=== PATIENT | male | born 1980 | race Hispanic/Latino ===

== ENCOUNTER 2016-07-18 14:13 | Day surgery (SDC) | payer SELFPAY ==
[~2016-07-18] VITALS: Ht 160 cm; Wt 90.7 kg
[~2016-07-18 14:13] MED LIST: CIPR500T89 PO; FLAG500T PO; NO KNOWN MEDS; PERCOCET PO
[2016-07-18] MEDS ORDERED: KETOROLAC 30 MG/ML VIAL (J1885) As Ordered ONE (15:32)
[2016-07-18] MEDS ORDERED: ONDANSETRON 4MG/2ML VIAL (J2405) As Ordered ONE ×2 (15:32→20:11)
[2016-07-18 15:56] LABS: BASO % 0.1 % (0.0-1.0); EOS # 0.2 K/mm3 (0.0-0.50); EOS % 1.2 % (0.0-3.0); LARGE UNSTAINED CELL # 0.1 K/mm3 (0.0-0.4); LARGE UNSTAINED CELL % 1.1 % (0.0-4.0); LYMPH # 1.8 K/mm3 (1.5-4.5); LYMPH % 14.6 % (24.0-44.0); MEAN CORPUSCULAR HEMOGLOBIN 30.1 pg (27.0-33.0); MEAN CORPUSCULAR HGB CONC 33.4 g/dl (32.0-36.5); MEAN CORPUSCULAR VOLUME 90.3 fl (80.0-96.0); MONO # 0.5 K/mm3 (0.0-0.8); MONO % 4.3 % (0.0-5.0); NEUTROPHILS # 9.9 K/mm3 (1.8-7.7); NEUTROPHILS % 78.6 % (36.0-66.0); PLATELET COUNT, AUTOMATED 291 k/mm3 (150-450); RED CELL DISTRIBUTION WIDTH 12.5 % (11.5-14.5); WHITE BLOOD COUNT 12.6 K/mm3 (4.0-10.0)
[2016-07-18 16:11] LABS: ALBUMIN 4.8 GM/DL (3.2-5.2); ALBUMIN/GLOBULIN RATIO 1.07 (1.00-1.93); ALKALINE PHOSPHATASE 89 U/L (45-117); ALT/SGPT 107 U/L (12-78); ANION GAP 8 MEQ/L (8-16); AST/SGOT 61 U/L (15-37); BILIRUBIN,DIRECT 0.1 MG/DL (0.0-0.2); BILIRUBIN,TOTAL 0.6 MG/DL (0.2-1.0); BLOOD UREA NITROGEN 10 MG/DL (7-18); CALCIUM LEVEL 9.1 MG/DL (8.5-10.1); CARBON DIOXIDE LEVEL 27 MEQ/L (21-32); CHLORIDE LEVEL 103 MEQ/L (98-107); CREATININE FOR GFR 0.99 MG/DL (0.70-1.30); GLOMERULAR FILTRATION RATE > 60.0 (>60); GLUCOSE, FASTING 98 MG/DL (70-105); SODIUM LEVEL 138 MEQ/L (136-145); TOTAL PROTEIN 9.3 GM/DL (6.4-8.2)
[2016-07-18] MEDS ORDERED: ISOVUE-370 76% 100ML VIAL (Q9967) As Ordered ONE (16:39)
[2016-07-18] MEDS ORDERED: MORPHINE 4 MG/ML 1ML SYRINGE As Ordered ONE (17:27)
--- NOTE | 2016-07-18 17:32 | REP ---
CT study of the abdomen and pelvis with IV but without oral contrast: History: Appendicitis. Right-sided abdominal pain. Comparison study June 14, 2012. CT contrast dose: 100 ml of Isovue 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 The lung bases are clear. No pleural effusion is seen. There is moderate diffuse fatty infiltration of the liver. There is some fat sparing in the right lobe and near the gallbladder. No adrenal lesion is seen. Pancreas is normal in appearance. No gallbladder abnormality is seen. The kidneys enhance symmetrically and are morphologically intact. There is a small right renal lipoma measuring 7 mm in greatest diameter. This is unchanged from the comparison CT study in 2012. It is fat density. No retroperitoneal mass or adenopathy is seen. There is evidence of acute appendicitis with a dilated appendix showing mural thickening and moderate pericolonic fat streaking. There is a small amount of pericolic gutter fluid. No free air or abscess is seen. There is radiopaque material in the proximal appendiceal lumen consistent with an appendicolith. In addition, there is diverticulosis affecting the sigmoid colon and there is a segment of mural thickening in the sigmoid colon with pericolonic fat streaking suggestive of diverticulitis. I note that the 2012 prior study showed diverticulitis in this same location. There is no evidence of abscess or free air here. The study is otherwise unremarkable. No bony destructive lesion is seen. Impression: 1. CT findings of acute appendicitis without evidence of free air or abscess. There is evidence of an appendicolith. 2. There is also evidence of sigmoid colon diverticulitis with pericolonic fat streaking and mural thickening but no evidence of abscess or free air. 3. There is moderate fatty infiltration of the liver. No other significant abnormality. Signed by Gibran Correia MD 07/19/2016 07:52 A
[2016-07-18] MEDS ORDERED: PIPERACILLIN/TAZOBACTAM SOD 3.375 GM in D5W MINI-BAG PLUS 50 ML IV SCH (18:32)
[2016-07-18] MEDS ORDERED: VITMTA PO (18:42)
--- NOTE | 2016-07-18 18:54 | EDDOCDS ---
Nurse's Notes [facility] Name: Eh Parsons Age: 35 yrs Sex: Male : 1980 Arrival Date: 07/18/2016 Time: 14:13 Bed I3 / M3 Private MD: NO PRIMARY PHYSICIAN, . Diagnosis: Acute appendicitis Presentation: 07/18 14:33 Presenting complaint: Patient states: history of diverticulitis, rt sided abdominal kpj pain since Friday, nauseated and fatigued. Risk factors: the patient reports not having a history of previous torsion. Adult Sepsis Screening: The patient does not have new or worsening altered mentation. Patient's respiratory rate is less than 22. Systolic blood pressure is greater than 100. Patient has a qSOFA score of 0- Negative Sepsis Screen. Suicide/Homicide risk assessment- the patient denies having any suicidal and/or homicidal ideations and does not present with any other emotional, behavioral or mental health complaints. Status: Patient is not a repair servicer or dependent. Transition of care: patient was not received from another setting of care. 14:33 Acuity: CHRISTIANO Level 3 [facility] 14:33 Method Of Arrival: Walkin/Carried/Asstd [facility] Triage Assessment: 14:35 General: Appears uncomfortable, Behavior is appropriate for age, pleasant. Pain: kpj Location: right lower quadrant Pain currently is 9 out of 10 on a pain scale. Pt Declines HIV testing. Neurological: Level of Consciousness is awake, alert, Oriented to person, place, time. Respiratory: Airway is patent Respiratory effort is even, unlabored, Respiratory pattern is regular, symmetrical. GI: Reports lower abdominal pain, nausea, Pain is 9 out of 10 on a pain scale. Derm: Skin is pink, warm & dry. Historical: - Allergies: No known drug Allergies; - Home Meds: 1. none - PMHx: Diverticulitis; - PSHx: none; - Social history: Smoking status: Patient states former smoker of tobacco. No barriers to communication noted, The patient speaks fluent Tajik. - Family history: Not pertinent. - : The pt / caregiver states he / she is not on anticoagulants. Home medication list is obtained from the patient. - Exposure Risk Screening:: None identified. Screenin:46 Screening information is obtained from the patient. Fall risk: No risks identified. dsf Assistance ADL's: requires no assistance with activities of daily living. Abuse/DV Screen: The patient / caregiver reports he/she is: not in a situation that causes fear, pain or injury. Nutritional screening: No deficits noted. Advance Directives: Currently, there is no health care proxy. home support is adequate. Assessment: 15:50 Adult Sepsis Screening: The patient does not have new or worsening altered mentation. dsf Patient's respiratory rate is less than 22. Systolic blood pressure is greater than 100. Patient has a qSOFA score of 0- Negative Sepsis Screen. General: Appears in no apparent distress, Behavior is appropriate for age, cooperative. Pain: Location: right lower quadrant Pain currently is 8 out of 10 on a pain scale. Quality of pain is described as pressure. Neurological: Level of Consciousness is awake, alert, Oriented to person, place, time. Cardiovascular: Capillary refill < 3 seconds Heart tones S1 S2 present. Respiratory: Airway is patent Respiratory effort is even, unlabored, Respiratory pattern is regular, symmetrical, Breath sounds are clear bilaterally. GI: Abdomen is non- distended Bowel sounds hyperactive in right upper quadrant, left upper quadrant, right lower quadrant and left lower quadrant Abd is soft X 4 quads Abd is tender to palpation in right lower quadrant. Derm: Skin is pink, warm & dry. 17:00 General: First contact with pt. Pt returned from CT. Tolerated well. When asked about ld5 pain and nausea, pt states "It's ok". Pt denies any needs at this time. Will continue to monitor. 17:05 General: Appears in no apparent distress, comfortable, Behavior is appropriate for age, dsf cooperative. Pain: Location: right lower quadrant Pain currently is 7 out of 10 on a pain scale. Neurological: Level of Consciousness is awake, alert. Cardiovascular: No deficits noted. Respiratory: No deficits noted. Derm: Skin is pink, warm & dry. 18:46 Adult Sepsis Screening: The patient does not have new or worsening altered mentation. dsf Patient's respiratory rate is less than 22. Systolic blood pressure is greater than 100. Patient has a qSOFA score of 0- Negative Sepsis Screen. General: Appears in no apparent distress, comfortable, Behavior is appropriate for age, cooperative. Pain: Denies pain. Neurological: Level of Consciousness is awake, alert, Oriented to person, place, time. Cardiovascular: Capillary refill < 3 seconds. Respiratory: Airway is patent Respiratory effort is even, unlabored, Respiratory pattern is regular, symmetrical. GI: Abdomen is non- distended. Derm: Skin is pink, warm & dry. Vital Signs: 14:14 BP 148 / 67; Pulse 121; Resp 20; Temp 98.9(O); Pulse Ox 98% on R/A; Weight 90.72 kg elp (R); Height 5 ft. 3 in. (160.02 cm) (R); Pain 9/10; 16:00 Pain 7/10; dsf 17:05 BP 141 / 78; Pulse 107; Resp 20; Temp 98.5(O); Pulse Ox 98% on R/A; Pain 7/10; dsf 18:40 BP 128 / 75; Pulse 89; Resp 20; Temp 98.4(O); Pulse Ox 98% on R/A; Pain 0/10; dsf 14:14 Body Mass Index 35.43 (90.72 kg, 160.02 cm) [facility] Vitals: 14:14 Log In Time: July 18, 2016 at 14:12. [facility] ED Course: 14:13 Patient visited by Ruchi Mandel PCA. elp 14:13 Patient moved to Waiting el 14:14 NO PRIMARY PHYSICIAN, . is Private Physician. elp 14:15 Patient visited by Ruchi Mandel PCA. elp 14:15 Patient moved to Pre RCE elp 14:34 Triage Initiated [facility] 14:36 Patient moved to Triage 1 [facility] 15:09 Dud[facility] Davis [facility] cc10 15:09 Remedios Alvarez MD is Attending Physician. cc10 15:11 Patient visited by Dudley Davis PA-C. cc10 15:11 Patient visited by Dudley Davis PA-C. cc10 15:31 Patient moved to I3 / dwg 15:40 Inserted saline lock: 18 gauge in left antecubital area The patient tolerated the dsf procedure well. 15:42 Urinalysis Sent. dem1 15:51 Patient visited by Gloria Brown RN. dsf 16:[address] dsf 16:59 Patient moved to I3 / M3 ld5 17:00 Patient visited by Rita Tony RN. ld5 17:02 Patient visited by Rita Tony RN. ld5 17:07 [facility] Payment Agreement was scanned into [employer] and attached to record. ks16 18:03 Félix Garner is Hospitalizing Provider. cc10 18:14 CT ABD & PELVIS: IV Contrast Only Returned. EDMS 18:46 The patient / caregiver is instructed regarding the plan of care and ED course. dsf 18:46 No procedures done that require assistance. dsf 18:51 Admission Orders was scanned into [employer] and attached to record. ml3 Administered Medications: 15:40 Drug: NS 0.9% 1000 ml [sodium chloride 0.9 % injection solution] Route: IV; Rate: dsf bolus; Site: left antecubital; 17:06 Follow up: IV Status: Completed infusion; IV Intake: 1000ml dsf 15:40 Drug: Ondansetron 4 mg [ondansetron HCl 2 mg/mL intravenous solution (2 mL)] Route: dsf IVP; Site: left antecubital; 15:40 Drug: ketorolac 30 mg [ketorolac 30 mg/mL (1 mL) injection solution (1 mL)] Route: IVP; dsf Site: left antecubital; 16:00 Follow up: Pain 12/30 Adult dsf 17:33 Drug: morphine 4 mg [morphine 4 mg/mL intravenous cartridge (1 mL)] Route: IVP; Site: dsf left antecubital; Intake: 17:06 IV: 1000.00ml; Total: 1000.00ml. dsf Order Results: Lab Order: Basic Metabolic Profile; SPEC'M 07/18/16 15:44 Test: GLUCOSE, FASTING; Value: 98; Range: 70-105; Units: MG/DL; Status: F Test: BLOOD UREA NITROGEN; Value: 10; Range: 7-18; Units: MG/DL; Status: F Test: CREATININE FOR GFR; Value: 0.99; Range: 0.70-1.30; Units: MG/DL; Status: F Test: GLOMERULAR FILTRATION RATE; Value: > 60.0; Range: >60; Status: F Test: SODIUM LEVEL; Value: 138; Range: 136-145; Units: MEQ/L; Status: F Test: POTASSIUM SERUM; Value: 4.0; Range: 3.5-5.1; Units: MEQ/L; Status: F Test: CHLORIDE LEVEL; Value: 103; Range: 98-107; Units: MEQ/L; Status: F Test: CARBON DIOXIDE LEVEL; Value: 27; Range: 21-32; Units: MEQ/L; Status: F Test: ANION GAP; Value: 8; Range: 8-16; Units: MEQ/L; Status: F Test: CALCIUM LEVEL; Value: 9.1; Range: 8.5-10.1; Units: MG/DL; Status: F Test Note: ; Units are mL/min/1.73 m2 Chronic Kidney Disease Staging per NKF: Stage I & II GFR >=60 Normal to Mildly Decreased Stage III GFR 30-59 Moderately Decreased Stage IV GFR 15-29 Severely Decreased Stage V GFR <15 Very Little GFR Left ESRD GFR <15 on GROUND MIXER Lab Order: CBC with Diff; SPEC'M 07/18/16 15:44 Test: WHITE BLOOD COUNT; Value: 12.6; Range: 4.0-10.0; Abnormal: Above high normal; Units: K/mm3; Status: F Test: RED BLOOD COUNT; Value: 5.28; Range: 4.30-6.10; Units: M/mm3; Status: F Test: HEMOGLOBIN; Value: 15.9; Range: 14.0-18.0; Units: g/dl; Status: F Test: HEMATOCRIT; Value: 47.7; Range: 42.0-52.0; Units: %; Status: F Test: MEAN CORPUSCULAR VOLUME; Value: 90.3; Range: 80.0-96.0; Units: fl; Status: F Test: MEAN CORPUSCULAR HEMOGLOBIN; Value: 30.1; Range: 27.0-33.0; Units: pg; Status: F Test: MEAN CORPUSCULAR HGB CONC; Value: 33.4; Range: 32.0-36.5; Units: g/dl; Status: F Test: RED CELL DISTRIBUTION WIDTH; Value: 12.5; Range: 11.5-14.5; Units: %; Status: F Test: PLATELET COUNT, AUTOMATED; Value: 291; Range: 150-450; Units: k/mm3; Status: F Test: NEUTROPHILS %; Value: 78.6; Range: 36.0-66.0; Abnormal: Above high normal; Units: %; Status: F Test: LYMPH %; Value: 14.6; Range: 24.0-44.0; Abnormal: Below low normal; Units: %; Status: F Test: MONO %; Value: 4.3; Range: 0.0-5.0; Units: %; Status: F Test: EOS %; Value: 1.2; Range: 0.0-3.0; Units: %; Status: F Test: BASO %; Value: 0.1; Range: 0.0-1.0; Units: %; Status: F Test: LARGE UNSTAINED CELL %; Value: 1.1; Range: 0.0-4.0; Units: %; Status: F Test: NEUTROPHILS #; Value: 9.9; Range: 1.8-7.7; Abnormal: Above high normal; Units: K/mm3; Status: F Test: LYMPH #; Value: 1.8; Range: 1.5-4.5; Units: K/mm3; Status: F Test: MONO #; Value: 0.5; Range: 0.0-0.8; Units: K/mm3; Status: F Test: EOS #; Value: 0.2; Range: 0.0-0.50; Units: K/mm3; Status: F Test: BASO #; Value: 0.0; Range: 0.0-0.2; Units: K/mm3; Status: F Test: LARGE UNSTAINED CELL #; Value: 0.1; Range: 0.0-0.4; Units: K/mm3; Status: F Lab Order: Lipase; SPEC'M 07/18/16 15:44 Test: LIPASE; Value: 117; Range: 73-393; Units: U/L; Status: F Lab Order: Liver Profile; SPEC'M 07/18/16 15:44 Test: AST/SGOT; Value: 61; Range: 15-37; Abnormal: Above high normal; Units: U/L; Status: F Test: ALT/SGPT; Value: 107; Range: 12-78; Abnormal: Above high normal; Units: U/L; Status: F Test: ALKALINE PHOSPHATASE; Value: 89; Range: 45-117; Units: U/L; Status: F Test: BILIRUBIN,TOTAL; Value: 0.6; Range: 0.2-1.0; Units: MG/DL; Status: F Test: BILIRUBIN,DIRECT; Value: 0.1; Range: 0.0-0.2; Units: MG/DL; Status: F Test: TOTAL PROTEIN; Value: 9.3; Range: 6.4-8.2; Abnormal: Above high normal; Units: GM/DL; Status: F Test: ALBUMIN; Value: 4.8; Range: 3.2-5.2; Units: GM/DL; Status: F Test: ALBUMIN/GLOBULIN RATIO; Value: 1.07; Range: 1.00-1.93; Status: F Lab Order: Urinalysis; SPEC'M 07/18/16 15:40 Test: APPEARANCE, URINE; Value: CLEAR; Range: CLEAR; Status: F Test: COLOR, URINE; Value: YELLOW; Range: YELLOW; Status: F Test: PH,URINE; Value: 5.0; Range: 5.0-9.0; Units: UNITS; Status: F Test: SPECIFIC GRAVITY URINE AUTO; Value: 1.021; Range: 1.002-1.035; Status: F Test: PROTEIN, URINE AUTO; Value: NEGATIVE; Range: NEGATIVE; Units: mg/dL; Status: F Test: GLUCOSE, URINE (UA) AUTO; Value: NEGATIVE; Range: NEGATIVE; Units: mg/dL; Status: F Test: KETONE, URINE AUTO; Value: 1+; Range: NEGATIVE; Abnormal: Above high normal; Units: mg/dL; Status: F Test: UROBILINOGEN, URINE AUTO; Value: 0.2; Range: 0.0-2.0; Units: mg/dL; Status: F Test: BILIRUBIN, URINE AUTO; Value: NEGATIVE; Range: NEGATIVE; Status: F Test: NITRITE, URINE AUTO; Value: NEGATIVE; Range: NEGATIVE; Status: F Test: LEUKOCYTE ESTERASE, URINE AUTO; Value: NEGATIVE; Range: NEGATIVE; Status: F Test: BLOOD, URINE BLOOD; Value: NEGATIVE; Range: NEGATIVE; Status: F Test: WBC, URINE AUTO; Value: 0; Range: 0-3; Units: /HPF; Status: F Test: RBC, URINE AUTO; Value: 1; Range: 0-3; Units: /HPF; Status: F Test: BACTERIA, URINE AUTO; Value: NEGATIVE; Range: NEGATIVE; Status: F Test: SQUAMOUS EPITHELIAL CELL UR AU; Value: 0; Range: 0-6; Units: /HPF; Status: F Test: MUCUS, URINE; Value: SMALL; Range: NEGATIVE; Status: F Test: HYALINE CAST, URINE AUTO; Value: 0; Range: 0-1; Units: /LPF; Status: F Radiology Order: CT ABD & PELVIS: IV Contrast Only Test: CT ABD & PELVIS: IV Contrast Only REASON FOR EXAMINATION: Appendicitis; CT study of the abdomen and pelvis with IV but without oral contrast:; ; History: Appendicitis. 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 The lung; bases are clear. No pleural effusion is seen.; ; There is moderate diffuse fatty infiltration of the liver. There is some fat; sparing in the right lobe and near the gallbladder. No adrenal lesion is seen.; Pancreas is normal in appearance. No gallbladder abnormality is seen.; ; The kidneys enhance symmetrically and are morphologically intact. There is a; small right renal lipoma measuring 7 mm in greatest diameter. This is unchanged; from the comparison CT study in 2011. It is fat density. No retroperitoneal; mass or adenopathy is seen.; ; There is evidence of acute appendicitis with a dilated appendix showing mural; thickening and moderate pericolonic fat streaking. There is a small amount of; pericolic gutter fluid. No free air or abscess is seen. There is radiopaque; material in the proximal appendiceal lumen consistent with an appendicolith.; ; In addition, there is diverticulosis affecting the sigmoid colon and there is a; segment of mural thickening in the sigmoid colon with pericolonic fat streaking; suggestive of diverticulitis. I note that the 2012 prior study showed; diverticulitis in this same location. There is no evidence of abscess or free; air here. The study is otherwise unremarkable. No bony destructive lesion is; seen.; ; Impression:; 1. CT findings of acute appendicitis without evidence of free air or abscess.; There is evidence of an appendicolith.; 2. There is also evidence of sigmoid colon diverticulitis with pericolonic fat; streaking and mural thickening but no evidence of abscess or free air.; 3. There is moderate fatty infiltration of the liver. No other significant; abnormality.; ; ; ; ; Unreviewed; Outcome: 18:03 Decision to Hospitalize by Provider. cc10 18:46 Discharge Assessment: Patient awake, alert and oriented x 3. No cognitive and/or dsf functional deficits noted. Patient verbalized understanding of disposition instructions. patient administered narcotics - yes. Patient was admitted to the hospital or transferred to another facility. The following High Risk Discharge criteria are identified: None. Admitted to OR accompanied by nurse, accompanied by tech, via stretcher, with chart. Condition: stable. CT Study completed. Property :Personal belongings accompany Pt. 18:54 Patient left the ED. ajjose Signatures: Dispatcher [employer] Quentin Siegel, RN RN Nellie Bajwa, RN RN Dm Nice, Land Reclamation Specialist Unit ml3 Rita TonyRN RN ld5 Gloria Brown,RN RN Aria Xie Demeishia dem1 Ruchi Mandel, ASSOCIATE PRODUCER ASSOCIATE PRODUCER elp Dudley Davis, PA-C PA-C cc10 Demetria Phillips, Reg Reg ks16 MTDD
--- NOTE | 2016-07-18 18:54 | EDDOCDS ---
Physician Documentation [facility] Name: Eh Parsons Age: 35 yrs Sex: Male : 1980 Arrival Date: 07/18/2016 Time: 14:13 Bed I3 / M3 Private MD: NO PRIMARY PHYSICIAN, . Disposition: 07/18/16 18:03 Hospitalization ordered by Félix Garner for Observation. Preliminary diagnosis is Acute appendicitis. - Bed requested for Admit. - Status is Observation. ajs - Condition is Stable. - Problem is an ongoing problem. - Symptoms have improved. Historical: - Allergies: No known drug Allergies; - Home Meds: 1. none - PMHx: Diverticulitis; - PSHx: none; - Social history: Smoking status: Patient states former smoker of tobacco. No barriers to communication noted, The patient speaks fluent Yakut. - Family history: Not pertinent. - : The pt / caregiver states he / she is not on anticoagulants. Home medication list is obtained from the patient. - Exposure Risk Screening:: None identified. Vital Signs: 07/18 14:14 BP 148 / 67; Pulse 121; Resp 20; Temp 98.9(O); Pulse Ox 98% on R/A; Weight 90.72 kg / elp 200 lbs (R); Height 5 ft. 3 in. (160.02 cm) (R); Pain 9/10; 16:00 Pain 7/10; dsf 17:05 BP 141 / 78; Pulse 107; Resp 20; Temp 98.5(O); Pulse Ox 98% on R/A; Pain 7/10; dsf 18:40 BP 128 / 75; Pulse 89; Resp 20; Temp 98.4(O); Pulse Ox 98% on R/A; Pain 0/10; dsf 14:14 Body Mass Index 35.43 (90.72 kg, 160.02 cm) elp MDM: 15:30 NS 0.9% 1000 ml IV at bolus once ordered. cc10 15:30 Ondansetron 4 mg IVP once ordered. cc10 15:30 ketorolac 30 mg IVP once ordered. cc10 15:30 IV Saline Lock ordered. cc10 15:30 Undress patient appropriately for examination ordered. cc10 15:32 Basic Metabolic Profile Ordered. EDMS 15:32 CBC with Diff Ordered. EDMS 15:32 Lipase Ordered. EDMS 15:32 Liver Profile Ordered. EDMS 15:32 Urinalysis Ordered. EDMS 15:32 CT ABD & PELVIS: IV Contrast Only Ordered. EDMS 15:32 NOTHING BY MOUTH+DIET ordered. EDMS 16:28 CBC with Diff Reviewed. cc10 16:28 Liver Profile Reviewed. cc10 16:28 Urinalysis Reviewed. cc10 16:28 Basic Metabolic Profile Reviewed. cc10 16:28 Lipase Reviewed. cc10 17:07 Financial registration complete. ks16 17:07 [facility] Payment Agreement was scanned into [employer] and attached to record. ks16 17:21 morphine 4 mg IVP once ordered. cc10 18:02 BED REQUEST+ADM ordered. EDMS 18:51 Admission Orders was scanned into [employer] and attached to record. ml3 Administered Medications: 15:40 Drug: NS 0.9% 1000 ml [sodium chloride 0.9 % injection solution] Route: IV; Rate: dsf bolus; Site: left antecubital; 17:06 Follow up: IV Status: Completed infusion; IV Intake: 1000ml dsf 15:40 Drug: Ondansetron 4 mg [ondansetron HCl 2 mg/mL intravenous solution (2 mL)] Route: dsf IVP; Site: left antecubital; 15:40 Drug: ketorolac 30 mg [ketorolac 30 mg/mL (1 mL) injection solution (1 mL)] Route: IVP; dsf Site: left antecubital; 16:00 Follow up: Pain 7/10 Adult dsf 17:33 Drug: morphine 4 mg [morphine 4 mg/mL intravenous cartridge (1 mL)] Route: IVP; Site: dsf left antecubital; Signatures: Dispatcher [employer] EDMS Nellie Quezada RN RN Dm Nice, Wire Mesh Gate Assembler Unit ml3 Gloria Brown RN RN dsf Aria Gonzalez Colin, PA-C PAMaggyC cc10 Demetria Phillips, Reg Reg ks16 The chart was reviewed and I authenticate all verbal orders and agree with the evaluation and treatment provided.Attachments: 17:07 [facility] Payment Agreement ks16 18:51 Admission Orders ml3 MTDD
[2016-07-18] MEDS ORDERED: BUPIVACAINE HCL 0.25% 30 ML VIAL As Ordered ONE (19:14)
[2016-07-18] MEDS ORDERED: ZOSYN 3.375 GM VIAL (J2543) As Ordered ONE (19:17)
[2016-07-18] MEDS ORDERED: PROPOFOL 200 MG/20 ML VIAL As Ordered ONE (19:45)
[2016-07-18] MEDS ORDERED: ROCURONIUM BROMIDE 50 MG/5 ML VIAL As Ordered ONE ×2 (19:45→19:56)
[2016-07-18] MEDS ORDERED: LIDOCAINE 2% INJ 100 MG/5 ML SDV (FOR ANES.) As Ordered ONE (19:45)
[2016-07-18] MEDS ORDERED: fentaNYL 250 MCG/5 ML INJECTION (J3010) As Ordered ONE (19:45)
[2016-07-18] MEDS ORDERED: MIDAZOLAM INJ 2 MG/2 ML VIAL (J2250) As Ordered ONE (19:45)
[2016-07-18] MEDS ORDERED: DESFLURANE 240 ML INHALANT As Ordered ONE (19:58)
[2016-07-18] MEDS ORDERED: KETOROLAC 60 MG/2 ML VIAL (J1885) As Ordered ONE (20:11)
[2016-07-18] MEDS ORDERED: NEOSTIGMINE 1MG/ML 5 ML SYRINGE (J2710) As Ordered ONE (20:11)
[2016-07-18] MEDS ORDERED: GLYCOPYRROLATE INJ 0.2 MG/ML 2 ML VIAL As Ordered ONE (20:11)
[2016-07-18] MEDS ORDERED: fentaNYL 100 MCG/2 ML INJECTION (J3010) IV PRN (21:15)
[2016-07-18] MEDS ORDERED: ONDANSETRON 4MG/2ML VIAL (J2405) IV PRN ×2 (21:15)
[2016-07-18] MEDS: LR 1,000 ML IV SCH (21:15)
[2016-07-18] MEDS ORDERED: NORCO, ANEXSIA 5/325MG TABLET (HYDROcodone/ACETAMINOPHEN) PO PRN ×2 (21:15)
[2016-07-18] MEDS ORDERED: ACETAMINOPHEN TAB 650MG DOSE (2X325MG) PO PRN (21:15)
[2016-07-18] MEDS ORDERED: LR 1,000 ML IV SCH (21:15)
[2016-07-18] MEDS ORDERED: MORPHINE 2 MG/ML 1ML SYRINGE IV PRN (21:15)
[2016-07-18 21:30] VITALS: BP 121/67
[2016-07-18 22:30] VITALS: BP 135/63
[2016-07-18 23:00] VITALS: BP 120/66
[2016-07-19] VITALS (8 sets, daily range): BP systolic 90–128; BP diastolic 51–77
--- NOTE | 2016-07-19 00:16 | RO ---
DATE OF PROCEDURE: 07/18/2016 PREOPERATIVE DIAGNOSIS: Acute appendicitis POSTOPERATIVE DIAGNOSIS: Acute appendicitis. PROCEDURE PERFORMED: Laparoscopic appendectomy. SURGEON: Dr. Félix Garner PAPER CONE GRADER: ANESTHESIA: General. INDICATIONS FOR PROCEDURE: The patient is a 35-year-old man who presented to the emergency department with a 2-day history of right lateral abdominal pain. The pain was initially progressive but has now been stable and constant and brought him to the emergency department for evaluation. His evaluation, including a CT scan, was consistent with acute appendicitis. He is now for a laparoscopic appendectomy. DESCRIPTION OF PROCEDURE: The patient was placed under general endotracheal anesthesia. The patient's abdomen was prepped and draped in a sterile fashion. 0.25% Marcaine was infiltrated at each of the trocar sites. A short supraumbilical incision was made. This was deepened to the fascia which was opened in the midline. The peritoneum was opened bluntly. As there was not a James cannula available, an 11 mm trocar was inserted, which fit nicely. The abdomen was insufflated with carbon dioxide gas and the laparoscope was placed. The patient was rolled to the left and tilted into a Trendelenburg position. Inspection showed some inflammatory debris with some exudate at the inferior aspect of the cecum. A 5 mm trocar was placed low in the midline and a second 5 mm trocar was placed in the left lower quadrant. The cecum was rolled medially. The thickened appendix was identified lying just lateral to the terminal ileum. The appendix was fairly short and dilated and inflamed. Some of the inflammatory adhesions between the appendix and the terminal ileum were broken apart bluntly. The mesoappendix was grasped and the appendix was elevated. Some attachments laterally were divided using the hook cautery. Dissection continued to free the appendix down toward its base. The mesoappendix was divided primarily using the hook cautery with care to avoid leaving any bleeding points. Once the base of the appendix was nicely exposed, the appendix was stapled with a linear cutter 35 stapler with a blue load at the juncture between the appendix and the cecum. In order to use the stapler, the 11 mm trocar was converted to a 12mm at that point in the procedure. The appendix was placed in an Endopouch. The right lower quadrant was irrigated and inspected. Hemostasis was excellent. The patient was returned to a flat position and any remaining irrigation was removed. The abdomen was deflated and the trocars were all removed. The appendix was recovered through the supraumbilical site. The fascia was closed with interrupted simple sutures of #2-0 Vicryl. The skin incisions were all closed with buried #5-0 Vicryl and Steri-Strips. Light dressings were applied. The patient tolerated the procedure well without apparent complication. He was awakened in the operating room, extubated and moved to the recovery room in stable condition. THAO
[2016-07-19] MEDS: NORCO, ANEXSIA 5/325MG TABLET (HYDROcodone/ACETAMINOPHEN) PO PRN ×4 (00:26→20:43)
[2016-07-19] MEDS: LR 1,000 ML IV SCH (06:15)
[2016-07-19] MEDS: KETOROLAC 30 MG/ML VIAL (J1885) IV PRN ×2 (13:17→19:52)
[2016-07-20] VITALS: BP 125/66
[2016-07-20] MEDS: LR 1,000 ML IV SCH (03:15)
[2016-07-20 04:00] VITALS: BP 157/68
[2016-07-20] MEDS: NORCO, ANEXSIA 5/325MG TABLET (HYDROcodone/ACETAMINOPHEN) PO PRN (06:43)
[2016-07-20 08:00] VITALS: BP 116/60
[2016-07-20] MEDS ORDERED: NORCOTAB PO (10:09)
--- NOTE | 2016-07-20 19:55 | EDDOCDS ---
Physician Documentation [facility] Name: Eh Parsons Age: 35 yrs Sex: Male : 1980 Arrival Date: 07/18/2016 Time: 14:13 Bed I3 / M3 Private MD: NO PRIMARY PHYSICIAN, . Disposition: 07/18/16 18:03 Hospitalization ordered by Félix Garner for Observation. Preliminary diagnosis is Acute appendicitis. - Bed requested for Admit. - Status is Observation. ajs - Condition is Stable. - Problem is an ongoing problem. - Symptoms have improved. Historical: - Allergies: No known drug Allergies; - Home Meds: 1. none - PMHx: Diverticulitis; - PSHx: none; - Social history: Smoking status: Patient states former smoker of tobacco. No barriers to communication noted, The patient speaks fluent Persian. - Family history: Not pertinent. - : The pt / caregiver states he / she is not on anticoagulants. Home medication list is obtained from the patient. - Exposure Risk Screening:: None identified. Vital Signs: 07/18 14:14 BP 148 / 67; Pulse 121; Resp 20; Temp 98.9(O); Pulse Ox 98% on R/A; Weight 90.72 kg / elp 200 lbs (R); Height 5 ft. 3 in. (160.02 cm) (R); Pain 9/10; 16:00 Pain 7/10; dsf 17:05 BP 141 / 78; Pulse 107; Resp 20; Temp 98.5(O); Pulse Ox 98% on R/A; Pain 7/10; dsf 18:40 BP 128 / 75; Pulse 89; Resp 20; Temp 98.4(O); Pulse Ox 98% on R/A; Pain 0/10; dsf 14:14 Body Mass Index 35.43 (90.72 kg, 160.02 cm) elp MDM: 15:30 NS 0.9% 1000 ml IV at bolus once ordered. cc10 15:30 Ondansetron 4 mg IVP once ordered. cc10 15:30 ketorolac 30 mg IVP once ordered. cc10 15:30 IV Saline Lock ordered. cc10 15:30 Undress patient appropriately for examination ordered. cc10 15:32 Basic Metabolic Profile Ordered. EDMS 15:32 CBC with Diff Ordered. EDMS 15:32 Lipase Ordered. EDMS 15:32 Liver Profile Ordered. EDMS 15:32 Urinalysis Ordered. EDMS 15:32 CT ABD & PELVIS: IV Contrast Only Ordered. EDMS 15:32 NOTHING BY MOUTH+DIET ordered. EDMS 16:28 CBC with Diff Reviewed. cc10 16:28 Liver Profile Reviewed. cc10 16:28 Urinalysis Reviewed. cc10 16:28 Basic Metabolic Profile Reviewed. cc10 16:28 Lipase Reviewed. cc10 17:07 Financial registration complete. ks16 17:07 [facility] Payment Agreement was scanned into I-[employer] and attached to record. ks16 17:21 morphine 4 mg IVP once ordered. cc10 18:02 BED REQUEST+ADM ordered. EDMS 18:51 Admission Orders was scanned into I-MD and attached to record. ml3 07/19 10:48 T-Sheet-- Draft Copy was scanned into I-[employer] and attached to record. gb 10:49 Radiology Report was scanned into I-MD and attached to record. gb Administered Medications: 07/18 15:40 Drug: NS 0.9% 1000 ml [sodium chloride 0.9 % injection solution] Route: IV; Rate: dsf bolus; Site: left antecubital; 17:06 Follow up: IV Status: Completed infusion; IV Intake: 1000ml dsf 15:40 Drug: Ondansetron 4 mg [ondansetron HCl 2 mg/mL intravenous solution (2 mL)] Route: dsf IVP; Site: left antecubital; 15:40 Drug: ketorolac 30 mg [ketorolac 30 mg/mL (1 mL) injection solution (1 mL)] Route: IVP; dsf Site: left antecubital; 16:00 Follow up: Pain 12/30 Adult dsf 17:33 Drug: morphine 4 mg [morphine 4 mg/mL intravenous cartridge (1 mL)] Route: IVP; Site: dsf left antecubital; Signatures: Dispatcher MedHost EDMS Nellie Quezada RN RN Kimberley Ruiz, Reg Reg gb Dm Wilson, Electric Fork Operator Unit ml3 Gloria Brown RN RN dsf Aria Gonzalez Colin, PA-C PA-C cc10 Demetria Phillips, Reg Reg ks16 The chart was reviewed and I authenticate all verbal orders and agree with the evaluation and treatment provided.Attachments: 17:07 [facility] Payment Agreement [email or web address] 18:51 Admission Orders ml3 07/19 10:48 T-Sheet-- Draft Copy gb Chart Complete MTDD
--- NOTE | 2016-07-20 19:55 | EDDOCDS ---
Physician Documentation [facility] Name: Eh Parsons Age: 35 yrs Sex: Male : 1980 Arrival Date: 07/18/2016 Time: 14:13 Bed I3 / M3 Private MD: NO PRIMARY PHYSICIAN, . Disposition: 07/18/16 18:03 Hospitalization ordered by Félix Garner for Observation. Preliminary diagnosis is Acute appendicitis. - Bed requested for Admit. - Status is Observation. ajs - Condition is Stable. - Problem is an ongoing problem. - Symptoms have improved. Historical: - Allergies: No known drug Allergies; - Home Meds: 1. none - PMHx: Diverticulitis; - PSHx: none; - Social history: Smoking status: Patient states former smoker of tobacco. No barriers to communication noted, The patient speaks fluent Divehi. - Family history: Not pertinent. - : The pt / caregiver states he / she is not on anticoagulants. Home medication list is obtained from the patient. - Exposure Risk Screening:: None identified. Vital Signs: 07/18 14:14 BP 148 / 67; Pulse 121; Resp 20; Temp 98.9(O); Pulse Ox 98% on R/A; Weight 90.72 kg / elp 200 lbs (R); Height 5 ft. 3 in. (160.02 cm) (R); Pain 9/10; 16:00 Pain 7/10; dsf 17:05 BP 141 / 78; Pulse 107; Resp 20; Temp 98.5(O); Pulse Ox 98% on R/A; Pain 7/10; dsf 18:40 BP 128 / 75; Pulse 89; Resp 20; Temp 98.4(O); Pulse Ox 98% on R/A; Pain 0/10; dsf 14:14 Body Mass Index 35.43 (90.72 kg, 160.02 cm) elp MDM: 15:30 NS 0.9% 1000 ml IV at bolus once ordered. cc10 15:30 Ondansetron 4 mg IVP once ordered. cc10 15:30 ketorolac 30 mg IVP once ordered. cc10 15:30 IV Saline Lock ordered. cc10 15:30 Undress patient appropriately for examination ordered. cc10 15:32 Basic Metabolic Profile Ordered. EDMS 15:32 CBC with Diff Ordered. EDMS 15:32 Lipase Ordered. EDMS 15:32 Liver Profile Ordered. EDMS 15:32 Urinalysis Ordered. EDMS 15:32 CT ABD & PELVIS: IV Contrast Only Ordered. EDMS 15:32 NOTHING BY MOUTH+DIET ordered. EDMS 16:28 CBC with Diff Reviewed. cc10 16:28 Liver Profile Reviewed. cc10 16:28 Urinalysis Reviewed. cc10 16:28 Basic Metabolic Profile Reviewed. cc10 16:28 Lipase Reviewed. cc10 17:07 Financial registration complete. ks16 17:07 [facility] Payment Agreement was scanned into [employer] and attached to record. ks16 17:21 morphine 4 mg IVP once ordered. cc10 18:02 BED REQUEST+ADM ordered. EDMS 18:51 Admission Orders was scanned into [employer] and attached to record. ml3 07/19 10:48 T-Sheet-- Draft Copy was scanned into [employer] and attached to record. gb 10:49 Radiology Report was scanned into [employer] and attached to record. gb Administered Medications: 07/18 15:40 Drug: NS 0.9% 1000 ml [sodium chloride 0.9 % injection solution] Route: IV; Rate: dsf bolus; Site: left antecubital; 17:06 Follow up: IV Status: Completed infusion; IV Intake: 1000ml dsf 15:40 Drug: Ondansetron 4 mg [ondansetron HCl 2 mg/mL intravenous solution (2 mL)] Route: dsf IVP; Site: left antecubital; 15:40 Drug: ketorolac 30 mg [ketorolac 30 mg/mL (1 mL) injection solution (1 mL)] Route: IVP; dsf Site: left antecubital; 16:00 Follow up: Pain 12/30 Adult dsf 17:33 Drug: morphine 4 mg [morphine 4 mg/mL intravenous cartridge (1 mL)] Route: IVP; Site: dsf left antecubital; Signatures: Dispatcher MedHost EDMS Nellie Quezada RN RN Kimberley Ruiz, Reg Reg gb Dm Wilson, Heavy Rail Train Operator Unit ml3 Gloria Brown RN RN dsf Aria Gonzalez Colin, PA-C PA-C cc10 Demetria Phillips, Reg Reg ks16 The chart was reviewed and I authenticate all verbal orders and agree with the evaluation and treatment provided.Attachments: 17:07 [facility] Payment Agreement [email or web address] 18:51 Admission Orders ml3 07/19 10:48 T-Sheet-- Draft Copy gb Chart Complete MTDD
--- NOTE | 2016-07-20 19:55 | EDDOCDS ---
Nurse's Notes [facility] Name: Eh Parsons Age: 35 yrs Sex: Male : 1980 Arrival Date: 07/18/2016 Time: 14:13 Bed I3 / M3 Private MD: NO PRIMARY PHYSICIAN, . Diagnosis: Acute appendicitis Presentation: 07/18 14:33 Presenting complaint: Patient states: history of diverticulitis, rt sided abdominal kpj pain since Friday, nauseated and fatigued. Risk factors: the patient reports not having a history of previous torsion. Adult Sepsis Screening: The patient does not have new or worsening altered mentation. Patient's respiratory rate is less than 22. Systolic blood pressure is greater than 100. Patient has a qSOFA score of 0- Negative Sepsis Screen. Suicide/Homicide risk assessment- the patient denies having any suicidal and/or homicidal ideations and does not present with any other emotional, behavioral or mental health complaints. 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 Transition of care: patient was not received from another setting of care. 14:33 Acuity: CHRISTIANO Level 3 [facility] 14:33 Method Of Arrival: Walkin/Carried/Asstd [facility] Triage Assessment: 14:35 General: Appears uncomfortable, Behavior is appropriate for age, pleasant. Pain: kpj Location: right lower quadrant Pain currently is 9 out of 10 on a pain scale. Pt Declines HIV testing. Neurological: Level of Consciousness is awake, alert, Oriented to person, place, time. Respiratory: Airway is patent Respiratory effort is even, unlabored, Respiratory pattern is regular, symmetrical. GI: Reports lower abdominal pain, nausea, Pain is 9 out of 10 on a pain scale. Derm: Skin is pink, warm & dry. Historical: - Allergies: No known drug Allergies; - Home Meds: 1. none - PMHx: Diverticulitis; - PSHx: none; - Social history: Smoking status: Patient states former smoker of tobacco. No barriers to communication noted, The patient speaks fluent Omani. - Family history: Not pertinent. - : The pt / caregiver states he / she is not on anticoagulants. Home medication list is obtained from the patient. - Exposure Risk Screening:: None identified. Screenin:46 Screening information is obtained from the patient. Fall risk: No risks identified. dsf Assistance ADL's: requires no assistance with activities of daily living. Abuse/DV Screen: The patient / caregiver reports he/she is: not in a situation that causes fear, pain or injury. Nutritional screening: No deficits noted. Advance Directives: Currently, there is no health care proxy. home support is adequate. Assessment: 15:50 Adult Sepsis Screening: The patient does not have new or worsening altered mentation. dsf Patient's respiratory rate is less than 22. Systolic blood pressure is greater than 100. Patient has a qSOFA score of 0- Negative Sepsis Screen. General: Appears in no apparent distress, Behavior is appropriate for age, cooperative. Pain: Location: right lower quadrant Pain currently is 8 out of 10 on a pain scale. Quality of pain is described as pressure. Neurological: Level of Consciousness is awake, alert, Oriented to person, place, time. Cardiovascular: Capillary refill < 3 seconds Heart tones S1 S2 present. Respiratory: Airway is patent Respiratory effort is even, unlabored, Respiratory pattern is regular, symmetrical, Breath sounds are clear bilaterally. GI: Abdomen is non- distended Bowel sounds hyperactive in right upper quadrant, left upper quadrant, right lower quadrant and left lower quadrant Abd is soft X 4 quads Abd is tender to palpation in right lower quadrant. Derm: Skin is pink, warm & dry. 17:00 General: First contact with pt. Pt returned from CT. Tolerated well. When asked about ld5 pain and nausea, pt states "It's ok". Pt denies any needs at this time. Will continue to monitor. 17:05 General: Appears in no apparent distress, comfortable, Behavior is appropriate for age, dsf cooperative. Pain: Location: right lower quadrant Pain currently is 7 out of 10 on a pain scale. Neurological: Level of Consciousness is awake, alert. Cardiovascular: No deficits noted. Respiratory: No deficits noted. Derm: Skin is pink, warm & dry. 18:46 Adult Sepsis Screening: The patient does not have new or worsening altered mentation. dsf Patient's respiratory rate is less than 22. Systolic blood pressure is greater than 100. Patient has a qSOFA score of 0- Negative Sepsis Screen. General: Appears in no apparent distress, comfortable, Behavior is appropriate for age, cooperative. Pain: Denies pain. Neurological: Level of Consciousness is awake, alert, Oriented to person, place, time. Cardiovascular: Capillary refill < 3 seconds. Respiratory: Airway is patent Respiratory effort is even, unlabored, Respiratory pattern is regular, symmetrical. GI: Abdomen is non- distended. Derm: Skin is pink, warm & dry. Vital Signs: 14:14 BP 148 / 67; Pulse 121; Resp 20; Temp 98.9(O); Pulse Ox 98% on R/A; Weight 90.72 kg elp (R); Height 5 ft. 3 in. (160.02 cm) (R); Pain 9/10; 16:00 Pain 7/10; dsf 17:05 BP 141 / 78; Pulse 107; Resp 20; Temp 98.5(O); Pulse Ox 98% on R/A; Pain 7/10; dsf 18:40 BP 128 / 75; Pulse 89; Resp 20; Temp 98.4(O); Pulse Ox 98% on R/A; Pain 0/10; dsf 14:14 Body Mass Index 35.43 (90.72 kg, 160.02 cm) [facility] Vitals: 14:14 Log In Time: July 18, 2016 at 14:12. [facility] ED Course: 14:13 Patient visited by Ruchi Mandel PCA. elp 14:13 Patient moved to Waiting el 14:14 NO PRIMARY PHYSICIAN, . is Private Physician. elp 14:15 Patient visited by Ruchi Mandel PCA. elp 14:15 Patient moved to Pre RCE elp 14:34 Triage Initiated [facility] 14:36 Patient moved to Triage 1 [facility] 15:09 [facility] cc[facility] 15:09 Remedios Alvarez MD is Attending Physician. cc10 15:11 Patient visited by Dudley Davis PA-C. cc10 15:11 Patient visited by Dudley Davis PA-C. cc10 15:31 Patient moved to I3 / dwg 15:40 Inserted saline lock: 18 gauge in left antecubital area The patient tolerated the dsf procedure well. 15:42 Urinalysis Sent. dem1 15:51 Patient visited by Gloria Brown RN. dsf 16:[address] dsf 16:59 Patient moved to I3 / M3 ld5 17:00 Patient visited by Rita Tony RN. ld5 17:02 Patient visited by Rita Tony RN. ld5 17:07 [facility] Payment Agreement was scanned into [employer] and attached to record. ks16 18:03 Félix Garner is Hospitalizing Provider. cc10 18:14 CT ABD & PELVIS: IV Contrast Only Returned. EDMS 18:46 The patient / caregiver is instructed regarding the plan of care and ED course. dsf 18:46 No procedures done that require assistance. dsf 18:51 Admission Orders was scanned into [employer] and attached to record. ml3 07/19 10:48 T-Sheet-- Draft Copy was scanned into [employer] and attached to record. gb 10:49 Radiology Report was scanned into [employer] and attached to record. gb Administered Medications: 07/18 15:40 Drug: NS 0.9% 1000 ml [sodium chloride 0.9 % injection solution] Route: IV; Rate: dsf bolus; Site: left antecubital; 17:06 Follow up: IV Status: Completed infusion; IV Intake: 1000ml dsf 15:40 Drug: Ondansetron 4 mg [ondansetron HCl 2 mg/mL intravenous solution (2 mL)] Route: dsf IVP; Site: left antecubital; 15:40 Drug: ketorolac 30 mg [ketorolac 30 mg/mL (1 mL) injection solution (1 mL)] Route: IVP; dsf Site: left antecubital; 16:00 Follow up: Pain 12/30 Adult dsf 17:33 Drug: morphine 4 mg [morphine 4 mg/mL intravenous cartridge (1 mL)] Route: IVP; Site: dsf left antecubital; Intake: 17:06 IV: 1000.00ml; Total: 1000.00ml. dsf Order Results: Lab Order: Basic Metabolic Profile; SPEC'M 07/18/16 15:44 Test: GLUCOSE, FASTING; Value: 98; Range: 70-105; Units: MG/DL; Status: F Test: BLOOD UREA NITROGEN; Value: 10; Range: 7-18; Units: MG/DL; Status: F Test: CREATININE FOR GFR; Value: 0.99; Range: 0.70-1.30; Units: MG/DL; Status: F Test: GLOMERULAR FILTRATION RATE; Value: > 60.0; Range: >60; Status: F Test: SODIUM LEVEL; Value: 138; Range: 136-145; Units: MEQ/L; Status: F Test: POTASSIUM SERUM; Value: 4.0; Range: 3.5-5.1; Units: MEQ/L; Status: F Test: CHLORIDE LEVEL; Value: 103; Range: 98-107; Units: MEQ/L; Status: F Test: CARBON DIOXIDE LEVEL; Value: 27; Range: 21-32; Units: MEQ/L; Status: F Test: ANION GAP; Value: 8; Range: 8-16; Units: MEQ/L; Status: F Test: CALCIUM LEVEL; Value: 9.1; Range: 8.5-10.1; Units: MG/DL; Status: F Test Note: ; Units are mL/min/1.73 m2 Chronic Kidney Disease Staging per NKF: Stage I & II GFR >=60 Normal to Mildly Decreased Stage III GFR 30-59 Moderately Decreased Stage IV GFR 15-29 Severely Decreased Stage V GFR <15 Very Little GFR Left ESRD GFR <15 on BRIDGE TEACHER Lab Order: CBC with Diff; SPEC'M 07/18/16 15:44 Test: WHITE BLOOD COUNT; Value: 12.6; Range: 4.0-10.0; Abnormal: Above high normal; Units: K/mm3; Status: F Test: RED BLOOD COUNT; Value: 5.28; Range: 4.30-6.10; Units: M/mm3; Status: F Test: HEMOGLOBIN; Value: 15.9; Range: 14.0-18.0; Units: g/dl; Status: F Test: HEMATOCRIT; Value: 47.7; Range: 42.0-52.0; Units: %; Status: F Test: MEAN CORPUSCULAR VOLUME; Value: 90.3; Range: 80.0-96.0; Units: fl; Status: F Test: MEAN CORPUSCULAR HEMOGLOBIN; Value: 30.1; Range: 27.0-33.0; Units: pg; Status: F Test: MEAN CORPUSCULAR HGB CONC; Value: 33.4; Range: 32.0-36.5; Units: g/dl; Status: F Test: RED CELL DISTRIBUTION WIDTH; Value: 12.5; Range: 11.5-14.5; Units: %; Status: F Test: PLATELET COUNT, AUTOMATED; Value: 291; Range: 150-450; Units: k/mm3; Status: F Test: NEUTROPHILS %; Value: 78.6; Range: 36.0-66.0; Abnormal: Above high normal; Units: %; Status: F Test: LYMPH %; Value: 14.6; Range: 24.0-44.0; Abnormal: Below low normal; Units: %; Status: F Test: MONO %; Value: 4.3; Range: 0.0-5.0; Units: %; Status: F Test: EOS %; Value: 1.2; Range: 0.0-3.0; Units: %; Status: F Test: BASO %; Value: 0.1; Range: 0.0-1.0; Units: %; Status: F Test: LARGE UNSTAINED CELL %; Value: 1.1; Range: 0.0-4.0; Units: %; Status: F Test: NEUTROPHILS #; Value: 9.9; Range: 1.8-7.7; Abnormal: Above high normal; Units: K/mm3; Status: F Test: LYMPH #; Value: 1.8; Range: 1.5-4.5; Units: K/mm3; Status: F Test: MONO #; Value: 0.5; Range: 0.0-0.8; Units: K/mm3; Status: F Test: EOS #; Value: 0.2; Range: 0.0-0.50; Units: K/mm3; Status: F Test: BASO #; Value: 0.0; Range: 0.0-0.2; Units: K/mm3; Status: F Test: LARGE UNSTAINED CELL #; Value: 0.1; Range: 0.0-0.4; Units: K/mm3; Status: F Lab Order: Lipase; SPEC'M 07/18/16 15:44 Test: LIPASE; Value: 117; Range: 73-393; Units: U/L; Status: F Lab Order: Liver Profile; SPEC'M 07/18/16 15:44 Test: AST/SGOT; Value: 61; Range: 15-37; Abnormal: Above high normal; Units: U/L; Status: F Test: ALT/SGPT; Value: 107; Range: 12-78; Abnormal: Above high normal; Units: U/L; Status: F Test: ALKALINE PHOSPHATASE; Value: 89; Range: 45-117; Units: U/L; Status: F Test: BILIRUBIN,TOTAL; Value: 0.6; Range: 0.2-1.0; Units: MG/DL; Status: F Test: BILIRUBIN,DIRECT; Value: 0.1; Range: 0.0-0.2; Units: MG/DL; Status: F Test: TOTAL PROTEIN; Value: 9.3; Range: 6.4-8.2; Abnormal: Above high normal; Units: GM/DL; Status: F Test: ALBUMIN; Value: 4.8; Range: 3.2-5.2; Units: GM/DL; Status: F Test: ALBUMIN/GLOBULIN RATIO; Value: 1.07; Range: 1.00-1.93; Status: F Lab Order: Urinalysis; SPEC'M 07/18/16 15:40 Test: APPEARANCE, URINE; Value: CLEAR; Range: CLEAR; Status: F Test: COLOR, URINE; Value: YELLOW; Range: YELLOW; Status: F Test: PH,URINE; Value: 5.0; Range: 5.0-9.0; Units: UNITS; Status: F Test: SPECIFIC GRAVITY URINE AUTO; Value: 1.021; Range: 1.002-1.035; Status: F Test: PROTEIN, URINE AUTO; Value: NEGATIVE; Range: NEGATIVE; Units: mg/dL; Status: F Test: GLUCOSE, URINE (UA) AUTO; Value: NEGATIVE; Range: NEGATIVE; Units: mg/dL; Status: F Test: KETONE, URINE AUTO; Value: 1+; Range: NEGATIVE; Abnormal: Above high normal; Units: mg/dL; Status: F Test: UROBILINOGEN, URINE AUTO; Value: 0.2; Range: 0.0-2.0; Units: mg/dL; Status: F Test: BILIRUBIN, URINE AUTO; Value: NEGATIVE; Range: NEGATIVE; Status: F Test: NITRITE, URINE AUTO; Value: NEGATIVE; Range: NEGATIVE; Status: F Test: LEUKOCYTE ESTERASE, URINE AUTO; Value: NEGATIVE; Range: NEGATIVE; Status: F Test: BLOOD, URINE BLOOD; Value: NEGATIVE; Range: NEGATIVE; Status: F Test: WBC, URINE AUTO; Value: 0; Range: 0-3; Units: /HPF; Status: F Test: RBC, URINE AUTO; Value: 1; Range: 0-3; Units: /HPF; Status: F Test: BACTERIA, URINE AUTO; Value: NEGATIVE; Range: NEGATIVE; Status: F Test: SQUAMOUS EPITHELIAL CELL UR AU; Value: 0; Range: 0-6; Units: /HPF; Status: F Test: MUCUS, URINE; Value: SMALL; Range: NEGATIVE; Status: F Test: HYALINE CAST, URINE AUTO; Value: 0; Range: 0-1; Units: /LPF; Status: F Radiology Order: CT ABD & PELVIS: IV Contrast Only Test: CT ABD & PELVIS: IV Contrast Only REASON FOR EXAMINATION: Appendicitis; CT study of the abdomen and pelvis with IV but without oral contrast:; ; History: Appendicitis. Right-sided abdominal pain.; ; Comparison study June 14, 2012.; ; CT contrast dose: 100 ml of Isovue 370 is administered intravenously.; ; CT findings: Preliminary digital skin peeling machine operator radiograph is unremarkable. The lung; bases are clear. No pleural effusion is seen.; ; There is moderate diffuse fatty infiltration of the liver. There is some fat; sparing in the right lobe and near the gallbladder. No adrenal lesion is seen.; Pancreas is normal in appearance. No gallbladder abnormality is seen.; ; The kidneys enhance symmetrically and are morphologically intact. There is a; small right renal lipoma measuring 7 mm in greatest diameter. This is unchanged; from the comparison CT study in 2011. It is fat density. No retroperitoneal; mass or adenopathy is seen.; ; There is evidence of acute appendicitis with a dilated appendix showing mural; thickening and moderate pericolonic fat streaking. There is a small amount of; pericolic gutter fluid. No free air or abscess is seen. There is radiopaque; material in the proximal appendiceal lumen consistent with an appendicolith.; ; In addition, there is diverticulosis affecting the sigmoid colon and there is a; segment of mural thickening in the sigmoid colon with pericolonic fat streaking; suggestive of diverticulitis. I note that the 2011 prior study showed; diverticulitis in this same location. There is no evidence of abscess or free; air here. The study is otherwise unremarkable. No bony destructive lesion is; seen.; ; Impression:; 1. CT findings of acute appendicitis without evidence of free air or abscess.; There is evidence of an appendicolith.; 2. There is also evidence of sigmoid colon diverticulitis with pericolonic fat; streaking and mural thickening but no evidence of abscess or free air.; 3. There is moderate fatty infiltration of the liver. No other significant; abnormality.; ; ; ; ; Unreviewed; Outcome: 18:03 Decision to Hospitalize by Provider. cc10 18:46 Discharge Assessment: Patient awake, alert and oriented x 3. No cognitive and/or dsf functional deficits noted. Patient verbalized understanding of disposition instructions. patient administered narcotics - yes. Patient was admitted to the hospital or transferred to another facility. The following High Risk Discharge criteria are identified: None. Admitted to OR accompanied by nurse, accompanied by tech, via stretcher, with chart. Condition: stable. CT Study completed. Property :Personal belongings accompany Pt. 18:54 Patient left the ED. ajjose Signatures: Dispatcher [employer] EDQuentin Ahn, RN RN Nellie Bajwa RN RN Kimberley Griffin, Reg Reg gb Katie, AliyaCarla, Driver/Refuse Collector Unit ml3 Rita TonyRN RN ld5 Gloria Brown,RN RN Aria Xie Demeishia dem1 Patchen, Erin, MOLDED GRID AND PARTS INSPECTOR MOLDED GRID AND PARTS INSPECTOR davidp Dudley Davis, PA-C PA-C cc10 Demetria Phillips, Reg Reg ks16 Chart Complete MTDD
== END 2016-07-20 13:05 | disposition home or self-care (01) ==
LOC: M ED 14:13 → M SDC 18:32 → M PED 21:33 → M SDC 07-20 13:05
PROVIDERS: ATTEND Surgery
DX: K35.89 Other acute appendicitis (principal); K57.32 Diverticulitis of large intestine without perforation or abscess without bleeding; Z87.891 Personal history of nicotine dependence
CPT/HCPCS: 44970; 74177; 80048; 80076; 81001; 83690; 85025; 88304; 96361; 96374; 96375; 96376; 99285; J1885; J2250; J2405; J2543; J2710; J3010; Q9967